=== PATIENT | male | born 1975 | race Caucasian/White ===

== ENCOUNTER 2023-03-25 05:28 | Emergency (ER) | payer OTHER, BC ==
[~2023-03-25] VITALS: Ht 182.9 cm; Wt 104.3 kg
[2023-03-25 05:37] VITALS: BP 140/92
[2023-03-25] MEDS ORDERED: AMOCLA875 PO (05:43)
[2023-03-26 10:08] LABS: HCV ANTIBODY Non Reactive (Non Reactive)
[2023-03-26 12:08] LABS: HIV AB/P24 AG SCREEN Non Reactive (Non Reactive)
== END 2023-03-25 06:09 | disposition home or self-care (01) ==
LOC: ER 05:28
PROVIDERS: Student in an Organized Health Care Education/Training Program
DX: S61.251A Open bite of left index finger without damage to nail, initial encounter (principal); W50.3XXA Accidental bite by another person, initial encounter; Z77.21 Contact with and (suspected) exposure to potentially hazardous body fluids
CPT/HCPCS: 84460; 86317; 86803; 87389; 99283; A9270

== ENCOUNTER 2023-04-08 17:32 | Emergency (ER) | payer BC ==
[~2023-04-08] VITALS: Ht 182.9 cm; Wt 104.3 kg
[~2023-04-08 17:32] MED LIST: AMOCLA875 PO
[2023-04-08 18:22] LABS: BASOPHILS ABSOLUTE AUTO 0.03 K/mm3 (0.00-0.23); BASOPHILS PERCENT AUTO 1 % (0-2); EOSINOPHILS ABSOLUTE AUTO 0.05 K/mm3 (0.00-0.68); EOSINOPHILS PERCENT AUTO 1 % (0-6); Hematocrit 43.4 % (37.0-53.0); Hemoglobin 15.3 g/dL (13.5-17.5); IMMATURE GRAN ABSOLUTE AUTO 0.02 K/mm3 (0.00-0.10); IMMATURE GRAN PERCENT AUTO 0 % (0-1); LYMPHOCYTES ABSOLUTE AUTO 1.73 K/mm3 (0.84-5.20); LYMPHOCYTES PERCENT AUTO 32 % (21-46); MONOCYTES ABSOLUTE AUTO 0.66 K/mm3 (0.16-1.47); MONOCYTES PERCENT AUTO 12 % (4-13); Mean Corpuscular HGB 30.4 pg (26.0-34.0); Mean Corpuscular HGB Conc 35.3 g/dL (31.5-36.5); Mean Corpuscular Volume 86 fL (80-100); Mean Platelet Volume 8.6 fL (9.1-12.4); NEUTROPHILS ABSOLUTE AUTO 2.95 K/mm3 (1.96-9.15); NEUTROPHILS PERCENT AUTO 54 % (41-73); Platelet Count 196 K/mm3 (150-400); RDW Coefficient Variation 11.4 % (11.7-14.2); RDW Standard Deviation 35.9 fL (35.1-46.3); Red Blood Cell Count 5.04 M/mm3 (4.30-5.90); White Blood Cell Count 5.44 K/mm3 (4.00-11.30)
[2023-04-08 18:42] LABS: Albumin/Globulin Ratio 1.1 (0.8-1.8); Bilirubin, Total 0.4 mg/dL (0.1-1.0); Bun/Creatinine Ratio 18.7 (12.0-20.0); Creatinine, Blood 1.07 mg/dL (0.60-1.20); Globulin, Blood 3.6 g/dL (2.2-4.0); Potassium, Blood 4.4 mmol/L (3.5-5.5); Total Protein, Blood 7.6 g/dL (6.4-8.2)
[2023-04-08 22:15] VITALS: BP 129/82
== END 2023-04-08 22:19 | disposition home or self-care (01) ==
LOC: ER 17:32
PROVIDERS: Physician Assistant
DX: R07.9 Chest pain, unspecified (principal)
CPT/HCPCS: 71046; 80053; 84484; 85025; 85379; 93005; 93010; 99284-25